=== PATIENT | female | born 1985 | race Caucasian/White ===

== ENCOUNTER 2021-08-03 04:19 | Inpatient (IN) | payer OTHER ==
[2021-08-02 11:14] VITALS: BMI 29.1
[2021-08-03] MEDS ORDERED: GENTAMICIN SO4 80 MG/2 ML VIAL ONE (09:05)
[2021-08-03] MEDS ORDERED: LIDOCAINE 1%/EPI 1:100000 (20 ML MULTI DOSE VIAL) ONE (09:08)
[2021-08-03] MEDS ORDERED: BUPIVACAINE LIPOSOME/PF (EXPAREL) 266 MG/20 ML VIAL ONE (10:56)
[2021-08-03] MEDS ORDERED: BUPIVACAINE HCL/PF 0.5% (5MG/ML) 10 ML VIAL ONE (10:56)
[2021-08-03] MEDS ORDERED: PROPOFOL 20 ML ONE (11:05)
[2021-08-03] MEDS ORDERED: MIDAZOLAM HCL 2 MG/2 ML SINGLE DOSE VIAL ONE (11:05)
[2021-08-03] MEDS ORDERED: LIDOCAINE 1%/EPI 1:100000 (20 ML MULTI DOSE VIAL) IJ ONE (11:34)
[2021-08-03] MEDS ORDERED: ceFAZolin SODIUM 1 GM VIAL IVPB ONE (11:35)
[2021-08-03] MEDS ORDERED: KETOROLAC TROMETHAMINE 30 MG/1 ML VIAL ONE (11:36)
[2021-08-03] MEDS ORDERED: DEXAMETHASONE SOD PHOSPHATE 4 MG/1 ML VIAL ONE (11:36)
[2021-08-03] MEDS ORDERED: ONDANSETRON 4 MG/2 ML VIAL ONE ×2 (11:36→12:48)
[2021-08-03] MEDS ORDERED: ceFAZolin SODIUM 1 GM VIAL ONE (11:36)
[2021-08-03] MEDS ORDERED: ePHEDrine SULFATE 50 MG/1 ML AMPULE ONE (11:43)
[2021-08-03] MEDS ORDERED: HYDROGEN PEROXIDE 473 ML PO ONE (11:55)
[2021-08-03] MEDS ORDERED: VANCOMYCIN 1,000 MG VIAL (RESTRICTED TO ID ONLY) IVPB ONE (11:55)
[2021-08-03] MEDS ORDERED: GENTAMICIN SO4 80 MG/2 ML VIAL IVPB ONE (11:55)
[2021-08-03] MEDS ORDERED: BACITRACIN 15 GM TUBE TOPICAL OINTMENT ONE (12:08)
[2021-08-03] MEDS ORDERED: BUPIVACAINE LIPOSOME/PF (EXPAREL) 266 MG/20 ML VIAL NR ONE (12:10)
[2021-08-03] MEDS ORDERED: BUPIVACAINE HCL/PF 0.5% (5 MG/ML) 30 ML VIAL IJ ONE (12:10)
[2021-08-03] MEDS ORDERED: ONDANSETRON 4 MG/2 ML VIAL IVPUSH PRN (12:51)
[2021-08-03] MEDS ORDERED: oxyCODONE HCL 5 MG TABLET PO ONE (12:52)
[2021-08-03] MEDS ORDERED: ACETAMINOPHEN INJECTION 100 ML IVPB ONE (12:54)
[2021-08-03] MEDS ORDERED: LACTATED RINGERS SOLUTION 1,000 ML IV SCH (13:00)
[2021-08-03] MEDS ORDERED: ACETAMINOPHEN 1000 MG/100 ML BAG IVPB ONE (13:30)
[2021-08-03] MEDS ORDERED: oxyCODONE HCL 5 MG TABLET ONE (14:50)
[2021-08-03 15:38] VITALS: BP 107/64; PULSE 79; TEMP 97.5
== END 2021-08-03 16:00 | disposition home or self-care (01) | DRG 33 ==
LOC: J2C 04:19
PROVIDERS: ADMIT Neurological Surgery; ATTEND Neurological Surgery
PROC: 3E1 Administration, Physiological Systems and Anatomical Regions, Irrigation (ICD-10-PCS; 2021-08-03)
PROC: 00W60JZ Revision of Synthetic Substitute in Cerebral Ventricle, Open Approach (ICD-10-PCS; principal; 2021-08-03 13:00)
DX: T85.01XA Breakdown (mechanical) of ventricular intracranial (communicating) shunt, initial encounter (principal); Y83.9 Surgical procedure, unspecified as the cause of abnormal reaction of the patient, or of later complication, without mention of misadventure at the time of the procedure
CPT/HCPCS: 88300-TC; 94760; J0131